=== PATIENT | female | born 1990 | race Caucasian/White ===

== ENCOUNTER 2022-09-17 14:24 | Emergency (ER) | payer OTHER ==
[~2022-09-17] VITALS: Ht 157.5 cm; Wt 90.9 kg
[~2022-09-17 14:24] MED LIST: PREN1TAB52 PO
[2022-09-17 14:31] VITALS: TEMP 98.7
[2022-09-17] MEDS ORDERED: HYDROCODONE/ACETAMINOPHEN 5-325 MG TABLET PO ONE (15:45)
[2022-09-17] MEDS ORDERED: POVIDONE-IODINE 10% 15 ML SOLUTION UD TP ONE (15:45)
[2022-09-17] MEDS ORDERED: LIDOCAINE 1%/EPI 1:200,000/PF 30 ML VIAL PERC ONE (15:45)
[2022-09-17] MEDS ORDERED: CEPH-558 PO (17:16)
[2022-09-17] MEDS ORDERED: SULF-261 PO (17:16)
[2022-09-17] MEDS ORDERED: IBUP-1492 PO (17:17)
[2022-09-17 17:34] VITALS: BP 125/85; PULSE 93; RESP 20
== END 2022-09-17 17:35 | disposition home or self-care (01) ==
LOC: EMS 14:25
DX: L05.01 Pilonidal cyst with abscess (principal); Z98.51 Tubal ligation status
CPT/HCPCS: 99283; 10060; J3490

== ENCOUNTER 2022-09-19 07:41 | Emergency (ER) | payer OTHER ==
[~2022-09-19] VITALS: Ht 149.9 cm; Wt 95.5 kg
[~2022-09-19 07:41] MED LIST changes: +CEPH-558 PO; +IBUP-1492 PO; -PREN1TAB52 PO; +SULF-261 PO
[2022-09-19 07:42] VITALS: TEMP 98.5
[2022-09-19 08:05] VITALS: BP 114/72; PULSE 97; RESP 16
== END 2022-09-19 08:11 | disposition home or self-care (01) ==
LOC: EMS 07:41
DX: L05.01 Pilonidal cyst with abscess (principal); Z98.51 Tubal ligation status
CPT/HCPCS: 99281; Z7502

== ENCOUNTER 2023-06-13 23:38 | Emergency (ER) | payer OTHER ==
[~2023-06-13] VITALS: Ht 149.9 cm; Wt 99.1 kg
[2023-06-14 00:21] VITALS: BP 140/90; PULSE 93; RESP 16; TEMP 98.1
[2023-06-14] MEDS ORDERED: ACET-66 PO (02:51)
[2023-06-14] MEDS ORDERED: IBUP-1554 PO (02:51)
[2023-06-14] MEDS ORDERED: DOXY-354 PO (02:51)
[2023-06-14] MEDS ORDERED: CEPH-558 PO (02:51)
[2023-06-14] MEDS: CEPHALEXIN MONOHYDRATE 500 MG CAPSULE PO ONE (02:52)
[2023-06-14] MEDS: ACETAMINOPHEN 500 MG TABLET PO ONE (02:52)
[2023-06-14] MEDS: DOXYCYCLINE HYCLATE 100 MG TABLET PO ONE (02:52)
== END 2023-06-14 03:00 | disposition home or self-care (01) ==
LOC: EMS 23:40
DX: L05.01 Pilonidal cyst with abscess (principal); Z98.51 Tubal ligation status
CPT/HCPCS: 99284; Z7502; Z7610

== ENCOUNTER 2023-12-25 14:11 | Emergency (ER) | payer OTHER ==
[~2023-12-25] VITALS: Ht 149.9 cm; Wt 86.4 kg
[~2023-12-25 14:11] MED LIST changes: +ACET-66 PO; +DOXY-354 PO; +IBUP-1554 PO
[2023-12-25 14:15] VITALS: TEMP 98.2
[2023-12-25] MEDS ORDERED: CLOT15CR29 TP (15:26)
[2023-12-25] MEDS ORDERED: FLUC150T61 PO (15:26)
[2023-12-25 15:46] VITALS: BP 124/73; PULSE 85; RESP 18; O2SAT 97
== END 2023-12-25 15:49 | disposition home or self-care (01) ==
LOC: EMS 14:11
DX: B35.4 Tinea corporis (principal); F32.A Depression, unspecified; E66.9 Obesity, unspecified; Z98.51 Tubal ligation status
CPT/HCPCS: 99283; Z7502

== ENCOUNTER 2024-02-28 11:37 | Emergency (ER) | payer OTHER ==
[~2024-02-28] VITALS: Ht 149.9 cm; Wt 86.0 kg
[~2024-02-28 11:37] MED LIST changes: -ACET-66 PO; -CEPH-558 PO; +CLOT15CR29 TP; -DOXY-354 PO; +FLUC150T61 PO; -IBUP-1492 PO; -IBUP-1554 PO; -SULF-261 PO
[2024-02-28 12:03] VITALS: BP 122/72; PULSE 75; RESP 18; TEMP 98.4; O2SAT 100
[2024-02-28 12:48] LABS: COVID AG,FIA SOURCE NASAL SWAB
[2024-02-28 13:24] LABS: SARS-COV2 (COVID) ANTIGEN,FIA Negative (Negative)
[2024-02-28 13:25] LABS: INFLUENZA TYPE A NEGATIVE FOR TYPE A (NEGATIVE); INFLUENZA TYPE B NEGATIVE FOR TYPE B (NEGATIVE)
[2024-02-28] MEDS ORDERED: AMOX500C2 PO (14:21)
== END 2024-02-28 14:24 | disposition home or self-care (01) ==
LOC: EMS 11:37
DX: H66.91 Otitis media, unspecified, right ear (principal); J06.9 Acute upper respiratory infection, unspecified; F32.A Depression, unspecified; Z98.51 Tubal ligation status; Z20.822 Contact with and (suspected) exposure to COVID-19
CPT/HCPCS: 87430; 87804; 99283

== ENCOUNTER 2024-03-16 16:10 | Emergency (ER) | payer OTHER ==
[~2024-03-16] VITALS: Ht 149.9 cm; Wt 84.5 kg
[~2024-03-16 16:10] MED LIST changes: +AMOX500C2 PO; -CLOT15CR29 TP; -FLUC150T61 PO
[2024-03-16 16:19] VITALS: TEMP 98
[2024-03-16 16:41] LABS: APPEARANCE,URINE HAZY (CLEAR); BILIRUBIN,URINE NEGATIVE (NEGATIVE); COLOR,URINE LIGHT YELLOW (YELLOW); GLUCOSE, URINE (UA) NEGATIVE (NEGATIVE); KETONES,URINE NEGATIVE (NEGATIVE); LEUKOCYTE ESTERASE ,URINE LARGE (NEGATIVE); NITRATE,URINE NEGATIVE (NEGATIVE); OCCULT BLOOD,URINE TRACE (NEGATIVE); PROTEIN,URINE NEGATIVE (NEGATIVE); SPECIFIC GRAVITIY, URINE 1.008 (1.003-1.030); UROBILINOGEN,URINE <=1.0 mg/dL (<=1.0)
[2024-03-16 16:52] LABS: BACTERIA,URINE Rare /HPF (None Seen); RBC,URINE 0-2 /HPF (0-2); SQUAMOUS EPITHELIAL CELL,UR Moderate /LPF (None Seen)
[2024-03-16 16:57] LABS: BASOPHILS % (AUTO) 0.3 % (0.0-2.0); EOSINOPHILS % (AUTO) 0.8 % (1.0-6.0); HEMATOCRIT 38.4 % (36-46); HEMOGLOBIN 12.8 g/dL (12.0-16.0); LYMPHOCYTES # (AUTO) 1.7 K/uL (1.0-4.8); MEAN CORPUSCULAR HEMOGLOBIN 27.7 pg (26.0-34.0); MEAN CORPUSCULAR HGB CONC 33.4 G/dL (31.0-37.0); MEAN CORPUSCULAR VOLUME 83 fL (80-100); MONOCYTES # (AUTO) 0.6 K/uL (0.1-1.0); MONOCYTES % (AUTO) 5.4 % (2.0-9.0); NEUTROPHILS # (AUTO) 9.1 K/uL (1.8-7.7); NEUTROPHILS % (AUTO) 78.5 % (40.0-70.0); PLATELET COUNT (AUTO) 386 K/uL (150-450); RED BLOOD CELL COUNT(AUTO) 4.64 MIL/uL (4.00-5.20); WHITE BLOOD COUNT (AUTO) 11.6 K/uL (4.5-11.0)
[2024-03-16 17:09] LABS: ANION GAP 9 mmol/L (8-16); CALCIUM, TOTAL 9.2 mg/dL (8.8-10.5); CARBON DIOXIDE 27 mmol/L (22-29); CHLORIDE 100 mmol/L (98-107); CREATININE 0.71 mg/dL (0.60-1.30); GLOMERULAR FILTR. RATE CALC > 60 mL/min (>60); GLUCOSE,RANDOM 94 mg/dL (70-110); POTASSIUM 3.4 mmol/L (3.5-5.1); SODIUM SERUM 136 mmol/L (136-145); UREA NITROGEN, BLOOD 9 mg/dL (7-18)
[2024-03-16] MEDS ORDERED: 0.9% SODIUM CHLORIDE 10 ML SYRINGE IVP ONE (17:09)
[2024-03-16] MEDS ORDERED: IOHEXOL 350 MG/ML 100 ML VIAL ONE (17:09)
[2024-03-16] MEDS ORDERED: SODIUM CHLORIDE 0.9% 100 ML ONE (17:09)
[2024-03-16 17:14] LABS: BILIRUBIN,DIRECT 0.1 mg/dL (0.00-0.20); BILIRUBIN,TOTAL 0.6 mg/dL (0.1-1.0); TOTAL PROTEIN, SERUM 8.5 g/dL (6.4-8.2)
[2024-03-16] MEDS: SODIUM CHLORIDE 0.9% 1,000 ML IV ONE (17:17)
[2024-03-16] MEDS: MAG HYDROX/ALUMINUM HYD/SIMETH 30 ML SUSPENSION UDCUP PO ONE (17:17)
[2024-03-16 17:18] LABS: AMYLASE 34 U/L (25-115); HCG,QUANTITATIVE < 1 mIU/mL (0-6); LIPASE 18 U/L (16-77)
[2024-03-16] MEDS: KETOROLAC TROMETHAMINE 30 MG/ML VIAL IVP ONE (17:18)
[2024-03-16] MEDS: FAMOTIDINE 20 MG/2 ML VIAL IVP ONE (17:18)
[2024-03-16] MEDS: ONDANSETRON HCL 4 MG/2 ML VIAL IVP ONE (17:18)
[2024-03-16] MEDS ORDERED: ONDA-104 PO (18:10)
[2024-03-16] MEDS ORDERED: CEPH-558 PO (18:10)
[2024-03-16] MEDS: CEPHALEXIN MONOHYDRATE 500 MG CAPSULE PO ONE (18:27)
[2024-03-16 18:31] VITALS: BP 125/82; PULSE 99; RESP 16; O2SAT 99
== END 2024-03-16 18:44 | disposition home or self-care (01) ==
LOC: EMS 16:10
DX: K52.9 Noninfective gastroenteritis and colitis, unspecified (principal); N39.0 Urinary tract infection, site not specified
CPT/HCPCS: 99285; 74177; 96374; 96375; 96361; 80048; 80076; 81001; 82150; 83690; 84702; 85025; 87086; 36415; J1885; Q9967; J3490; J2405; J7030; J7050